=== PATIENT | male | born 1970 | race Caucasian/White ===

== ENCOUNTER → 2016-04-11 | Outpatient (CLI) | payer BC ==
--- NOTE | 2016-04-11 21:51 | DI ---
PA /LATERAL CHEST X-RAY, 04/11/2016 2:45 PM : Clinical History: Cough Previous Exam: None at this facility. There is no acute soft tissue or bony abnormality. Heart size is normal. Lungs are clear. Mediastinal structures are normal. There are no pulmonary nodules. IMPRESSION: Normal chest x-ray.
== END ==
LOC: RAD 14:42
PROVIDERS: ATTEND Family Medicine
DX: R05 Cough (principal)
CPT/HCPCS: 71020

== ENCOUNTER → 2016-04-12 | Outpatient (CLI) | payer BC | LOC: LAB 08:17 | PROVIDERS: ATTEND Family Medicine | DX: R53.83 Other fatigue (principal); R68.89 Other general symptoms and signs | CPT/HCPCS: 84403 ==